=== PATIENT | female | born 1995 | race Caucasian/White ===

== ENCOUNTER 2019-02-17 17:44 | Emergency (ER) | payer MEDICAID ==
[2019-02-17] MEDS ORDERED: Lidocaine 2% w/ Epi 1:200K 10 ML VIAL ONE ×2 (18:03→18:05)
[2019-02-17] MEDS ORDERED: Lidocaine 1% PF 5 ML VIAL ONE (18:05)
[2019-02-17] MEDS ORDERED: Fluconazole 100 MG TAB ONE (18:30)
== END 2019-02-17 18:41 | disposition home or self-care (01) ==
LOC: BURERS 17:44
DX: O98.811 Other maternal infectious and parasitic diseases complicating pregnancy, first trimester (principal); B37.3 Candidiasis of vulva and vagina; Z3A.10 10 weeks gestation of pregnancy
CPT/HCPCS: 87252; 99283; J2001